=== PATIENT | female | born 1935 | race Two or more races ===

== ENCOUNTER 2021-12-13 16:30 | Emergency (ER) | payer OTHER ==
[~2021-12-13] VITALS: Ht 149.9 cm; Wt 51.7 kg
[2021-12-13] MEDS ORDERED: MEDROLPACK PO (19:57)
[2021-12-13] MEDS ORDERED: DICLOFENAC POTA50 MG PO (19:57)
== END 2021-12-13 20:08 | disposition home or self-care (01) ==
LOC: ER 16:30
DX: M25.531 Pain in right wrist (principal); R22.31 Localized swelling, mass and lump, right upper limb; M81.0 Age-related osteoporosis without current pathological fracture; Z95.0 Presence of cardiac pacemaker; M10.9 Gout, unspecified